=== PATIENT | female | born 1995 | race Caucasian/White ===

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

== ENCOUNTER 2018-03-28 18:49 | Emergency (ER) | payer OTHER ==
[~2018-03-28] VITALS: Ht 175.3 cm; Wt 143.0 kg
[~2018-03-28 18:49] MED LIST: CLARITIN10 M2 PO; MOTRIN400 MG PO
[2018-03-28] MEDS ORDERED: ALLEGRA60 MG PO (19:19)
[2018-03-28] MEDS ORDERED: AMOXICILLIN500 MG PO (20:24)
[2018-03-28 21:05] VITALS: BP 123/81
== END 2018-03-28 21:05 | disposition home or self-care (01) | DRG 605 ==
LOC: ED 18:49
PROC: 0HTQXZZ Resection of Finger Nail, External Approach (ICD-10-PCS; principal; 2018-03-28)
DX: S61.304A Unspecified open wound of right ring finger with damage to nail, initial encounter (principal); W23.1XXA Caught, crushed, jammed, or pinched between stationary objects, initial encounter; Y92.009 Unspecified place in unspecified non-institutional (private) residence as the place of occurrence of the external cause

== ENCOUNTER 2019-06-01 | Emergency (ER) | payer OTHER ==
[~2019-06-01] MED LIST changes: +ALLEGRA60 MG PO; +AMOXICILLIN500 MG PO
[2019-06-01 10:12] LABS: HEMATOCRIT 41.8 % (37.0-47.0); HEMOGLOBIN 13.7 g/dl (12.0-16.0); IMMATURE GRANULOCYTES 0.5 % (0.0-5.0); MEAN CORPUSCULAR HGB 27.8 pG CALC (26.0-32.0); MEAN CORPUSCULAR HGB CONC 32.8 g/dL CAL (32.0-36.0); NEUT# 8.85 thou/uL (2.00-7.15); RED BLOOD COUNT 4.92 mill/uL (4.20-5.60); RED CELL DISTRI WIDTH 13.1 % (11.5-15.5)
[2019-06-01] MEDS ORDERED: CLARITIN10 M1 PO (10:18)
[2019-06-01 10:28] LABS: ALBUMIN 4.4 g/dL (3.2-5.0); ANION GAP 12 (6-22 (CALC)); BILIRUBIN, TOTAL 0.4 mg/dL (0.0-1.4); BUN 8 mg/dL (7-17); BUN/CREATININE RATIO 11 (12-20 (CALC)); CARBON DIOXIDE 25 mmol/l (22-30); CHLORIDE 107 mmol/l (95-108); CREATININE 0.7 mg/dL (0.5-1.0); GFR > 60 ML/MIN (>=60 (CALC)); GFR FOR AFR.AMER. > 60 ML/MIN (>=60 (CALC)); POTASSIUM 3.7 mmol/l (3.5-5.1); SGOT/AST 23 u/l (14-36); SODIUM 140 mmol/l (137-146); TOTAL PROTEIN 7.8 g/dL (6.3-8.2)
[2019-06-01 10:30] LABS: ALKALINE PHOSPHATASE 96 u/l (38-126)
== END 2019-06-01 11:56 | disposition home or self-care (01) | DRG 761 ==
PROVIDERS: Family Medicine
DX: N92.0 Excessive and frequent menstruation with regular cycle (principal)

== ENCOUNTER 2021-05-28 11:59 | Observation (INO) | payer OTHER ==
[~2021-05-28] VITALS: Ht 175.3 cm; Wt 156.8 kg
[2021-05-28] VITALS (15 sets, daily range): BP systolic 99–151; BP diastolic 57–95
[~2021-05-28 11:59] MED LIST changes: +CLARITIN10 M1 PO
--- NOTE | 2021-05-28 12:04 | NUR ---
PT AMBULATORY TO ED ROOM 9 WITH STEADY GAIT FOR TRIAGE.
--- NOTE | 2021-05-28 12:22 | NUR ---
PT AMBULATORY TO ED BATHROOM TO ATTEMPT TO PROVIDE URINE SAMPLE.
--- NOTE | 2021-05-28 12:27 | NUR ---
URINE SAMPLE COLLECTED AND TAKEN TO LAB.
[2021-05-28 12:30] LABS: HEMATOCRIT 42.9 % (37.0-47.0); HEMOGLOBIN 14.1 g/dl (12.0-16.0); IMMATURE GRANULOCYTES 0.4 % (0.0-5.0); MEAN CELL VOLUME 86.5 fL CALC (80.0-100.0); MEAN CORPUSCULAR HGB 28.4 pG CALC (26.0-32.0); MEAN CORPUSCULAR HGB CONC 32.9 g/dL CAL (32.0-36.0); NEUT# 15.54 thou/uL (2.00-7.15); RED BLOOD COUNT 4.96 mill/uL (4.20-5.60); RED CELL DISTRI WIDTH 12.9 % (11.5-15.5)
[2021-05-28 12:36] LABS: URINE BILIRUBIN - DIPSTICK NEGATIVE (NEGATIVE); URINE BLOOD DIPSTICK LARGE (NEGATIVE); URINE COLOR YELLOW; URINE GLUCOSE - DIPSTICK NEGATIVE (NEGATIVE); URINE KETONE NEGATIVE (NEGATIVE); URINE PROTEIN - DIPSTICK 30 mg/dL (NEG-TRACE); URINE SPECIFIC GRAVITY 1.025; URINE UROBILINOGEN - DIPSTICK 0.2 E.U./dL (0.2)
[2021-05-28 12:44] LABS: URINE LEUK ESTERASE MODERATE (NEGATIVE); URINE NITRITE - DIPSTICK NEGATIVE (Negative)
[2021-05-28 12:46] LABS: URINE EPITHELIAL CELLS FEW EPI/hpf (0-FEW)
[2021-05-28 12:47] LABS: URINE BACTERIA FEW hpf
--- NOTE | 2021-05-28 12:49 | NUR ---
PT UPDATED ON POC AND ASKS FOR PAIN MEDICATION. DR HERNANDEZ NOTIFIED.
[2021-05-28 12:57] LABS: ALBUMIN 4.2 g/dL (3.2-5.0); ALKALINE PHOSPHATASE 96 u/l (38-126); ANION GAP 14 (6-22 (CALC)); BILIRUBIN, TOTAL 0.5 mg/dL (0.0-1.4); BUN 11 mg/dL (7-17); BUN/CREATININE RATIO 13 (12-20 (CALC)); CARBON DIOXIDE 23 mmol/l (22-30); CHLORIDE 106 mmol/l (95-108); CREATININE 0.9 mg/dL (0.5-1.0); GFR > 60 ML/MIN (>=60 (CALC)); GFR FOR AFR.AMER. > 60 ML/MIN (>=60 (CALC)); POTASSIUM 4.4 mmol/l (3.5-5.1); SGOT/AST 25 u/l (14-36); SODIUM 138 mmol/l (137-146); TOTAL PROTEIN 7.4 g/dL (6.3-8.2)
--- NOTE | 2021-05-28 13:29 | NUR ---
PT REPORTS FLANK PAIN RESOLVED. PT STABLE AWAITING IMAGING.
--- NOTE | 2021-05-28 14:02 | NUR ---
PT RESTING ON ED BED WITH SO AT THE BEDSIDE. PT DENIES ANY PAIN OR NAUSEA AT THIS TIME. VSS. SKIN PWD, BREATHING UNLABORED. PT ADVISED OF WAIT TIME. WILL CONTINUE TO MONITOR.
--- NOTE | 2021-05-28 15:02 | NUR ---
PT IN NO DISTRESS. VSS. WILL CONTINUE TO MONITOR.
--- NOTE | 2021-05-28 15:52 | NUR ---
PT PREPPED FOR SURGERY, JEWELRY REMOVED. SLIPPER SOCKS ON FEET. PERSONAL BELONGINGS BAGGED UP AND GIVEN TO SO. PT REPORTS PAIN RESOLVED AT THIS TIME. PT STABLE WITH FLUIDS INFUSING. PT REPORTS LAST SOLID FOOD AT 9PM YESERDAY AND GATORADE THIS MORNING AT 7AM.
--- NOTE | 2021-05-28 16:20 | NUR ---
RECREATION PROGRAM SPECIALIST IN TO SPEAK WITH PT
--- NOTE | 2021-05-28 16:59 | NUR ---
PT REMAINS STABLE, PAIN CONTROLLED, VSS. PT AWAITING SURGERY. SO AND FATHER AT THE BEDSIDE.
--- NOTE | 2021-05-28 17:06 | NUR ---
STACEY, SURGERY RN TAKES PT VIA STRETCHER TO SURGERY. PT'S BELONGINGS SENT WITH FAMILY. PT IN STABLE CONDITION AT THIS TIME.
--- NOTE | 2021-05-28 19:27 | NUR ---
PT ARRIVED TO MS2 VIA STRETCHER ACCOMPANIED BY OR NURSES X2, NO SIGNS OF DISTRESS NOTED, RESP EVEN AND UNLABORED ON RA. PT STOOD AND AMBULATED TO BED WITH STEADY GAIT. ORIENTED PT TO ROOM AND CALL LIGHT. SCD'S PLACED, DISCUSSED POC. IVF TO LAC. DENIES ANY PAIN AT THIS TIME, INSTRUCTED PT TO CALL FOR ASSISTANCE. ADMISSION ASSESSMENT COMPLETED, CALL LIGHT IN REACH,CONTINUE TO MONITOR.
--- NOTE | 2021-05-28 21:53 | NUR ---
PT RESTING IN BED, DISCUSSED IV ANTIBIOTIC, VERBALIZED UNDERSTANDING. ASSISTED PT TO BATHROOM VOIDED CLEAR BLOOD TINGED URINE, STRAINED. ASSISTED PT BACK TO BED, CALL LIGHT IN REACH,CONTINUE TO MONITOR.
[2021-05-29 00:16] VITALS: BP 117/70
--- NOTE | 2021-05-29 00:18 | NUR ---
PT RESTING IN BED WITH EYES CLOSED, EASILY AROUSED TO VERBAL STIMULI, PT VOICES NO NEEDS OR COMPLAINTS AT THIS TIME, CALL LIGHT IN REACH,CONTINUE TO MONITOR.
--- NOTE | 2021-05-29 04:31 | NUR ---
PT RESTING IN BED WITH EYES CLOSED, NO SIGNS OF DISTRESS NOTED, RESP EVEN AND UNLABORED. EASILY AROUSED TO VERBAL STIMULI, PT VOICES NO NEEDS OR COMPLAINTS AT THIS TIME. CALL LIGHT IN REACH,CONTINUE TO MONITOR.
[2021-05-29 05:06] LABS: MEAN CELL VOLUME 87.8 fL CALC (80.0-100.0); MEAN CORPUSCULAR HGB 28.5 pG CALC (26.0-32.0); MEAN CORPUSCULAR HGB CONC 32.5 g/dL CAL (32.0-36.0); RED BLOOD COUNT 4.17 mill/uL (4.20-5.60)
[2021-05-29 05:08] LABS: HEMATOCRIT 36.6 % (37.0-47.0); HEMOGLOBIN 11.9 g/dl (12.0-16.0)
[2021-05-29 05:14] LABS: ANION GAP 8 (6-22 (CALC)); BUN 11 mg/dL (7-17); BUN/CREATININE RATIO 14 (12-20 (CALC)); CARBON DIOXIDE 24 mmol/l (22-30); CHLORIDE 109 mmol/l (95-108); CREATININE 0.8 mg/dL (0.5-1.0); GFR > 60 ML/MIN (>=60 (CALC)); GFR FOR AFR.AMER. > 60 ML/MIN (>=60 (CALC)); POTASSIUM 3.8 mmol/l (3.5-5.1); SODIUM 137 mmol/l (137-146)
[2021-05-29 09:18] VITALS: BP 121/73
--- NOTE | 2021-05-29 09:49 | NUR ---
PT WITH FAMILY MEMBERS AT BEDSIDE. ASSESSMENT AND VITALS ALLOWED. PT ANXIOUS TO GO HOME. STATES NO PAIN AT THIS TIME. FALL/ SAFTEY PRECAUTION IN PLACE. CALL LIGHT WITHIN REACH
[2021-05-29] MEDS ORDERED: TAMSULOSIN HCL0.4 MG PO (11:18)
[2021-05-29] MEDS ORDERED: PYRIDIUM200 MG PO (11:19)
[2021-05-29] MEDS ORDERED: KEFLEX500 MG PO (11:19)
[2021-05-29] MEDS ORDERED: TRAMADOL HCL50 MG PO (11:20)
--- NOTE | 2021-05-29 12:13 | NUR ---
Discharge instructions given. Patient verbalizes understanding of same. Discharged in stable condition via Ambulatory to Home with family. All belongings sent with pt.
== END 2021-05-29 12:13 | disposition home or self-care (01) | DRG 661 ==
LOC: ED 11:59 → ED-I 15:14 → ED 15:29 → MS2 15:30
PROVIDERS: Family Medicine; ADMIT Internal Medicine; ATTEND Internal Medicine
PROC: 0T778DZ Dilation of Left Ureter with Intraluminal Device, Via Natural or Artificial Opening Endoscopic (ICD-10-PCS; principal; 2021-05-28)
PROC: BT141ZZ Fluoroscopy of Kidneys, Ureters and Bladder using Low Osmolar Contrast (ICD-10-PCS; 2021-05-28)
DX: N13.6 Pyonephrosis (principal); E66.9 Obesity, unspecified; Z84.1 Family history of disorders of kidney and ureter; Z20.822 Contact with and (suspected) exposure to COVID-19
CPT/HCPCS: J0131; Q9967

== ENCOUNTER 2021-06-18 06:13 | Day surgery (SDC) | payer OTHER ==
[~2021-06-18] VITALS: Ht 175.3 cm; Wt 154.7 kg
[~2021-06-18 06:13] MED LIST changes: +KEFLEX500 MG PO; +PYRIDIUM200 MG PO; +TAMSULOSIN HCL0.4 MG PO; +TRAMADOL HCL50 MG PO
[2021-06-18 08:54] VITALS: BP 118/73
== END 2021-06-18 09:07 | disposition home or self-care (01) | DRG 694 ==
LOC: ORM 06:13
PROVIDERS: ATTEND Urology
PROC: 0TP98DZ Removal of Intraluminal Device from Ureter, Via Natural or Artificial Opening Endoscopic (ICD-10-PCS; principal; 2021-06-18)
PROC: BT1F1ZZ Fluoroscopy of Left Kidney, Ureter and Bladder using Low Osmolar Contrast (ICD-10-PCS; 2021-06-18)
DX: N20.1 Calculus of ureter (principal); F17.290 Nicotine dependence, other tobacco product, uncomplicated
CPT/HCPCS: C1769; J0131; J1956; Q9967

== ENCOUNTER 2021-07-04 21:35 | Emergency (ER) | payer OTHER ==
[~2021-07-04] VITALS: Ht 175.3 cm; Wt 154.5 kg
[2021-07-04 21:50] VITALS: BP 146/81
[2021-07-04 22:00] VITALS: BP 139/82
[2021-07-04] MEDS ORDERED: PERCOCET 5/325M1 TAB PO (22:12)
[2021-07-04 22:18] LABS: HEMATOCRIT 38.6 % (37.0-47.0); HEMOGLOBIN 12.4 g/dl (12.0-16.0); IMMATURE GRANULOCYTES 0.4 % (0.0-5.0); MEAN CORPUSCULAR HGB 27.6 pG CALC (26.0-32.0); MEAN CORPUSCULAR HGB CONC 32.1 g/dL CAL (32.0-36.0); RED BLOOD COUNT 4.49 mill/uL (4.20-5.60); RED CELL DISTRI WIDTH 12.2 % (11.5-15.5)
[2021-07-04 22:20] LABS: URINE BILIRUBIN - DIPSTICK NEGATIVE (NEGATIVE); URINE BLOOD DIPSTICK NEGATIVE (NEGATIVE); URINE COLOR YELLOW; URINE GLUCOSE - DIPSTICK NEGATIVE (NEGATIVE); URINE KETONE TRACE mg/dL (NEGATIVE); URINE PH 6.5 (4.5-8.0); URINE PROTEIN - DIPSTICK NEGATIVE (NEG-TRACE); URINE UROBILINOGEN - DIPSTICK 0.2 E.U./dL (0.2)
[2021-07-04 22:21] LABS: URINE LEUK ESTERASE SMALL (NEGATIVE); URINE NITRITE - DIPSTICK NEGATIVE (Negative)
[2021-07-04 22:27] LABS: URINE BACTERIA MANY hpf; URINE RBC 0-2 RBC/hpf (0-5); URINE SQUAMOUS EPITHELIAL CELL MANY EPI/hpf (0-FEW)
[2021-07-04 22:30] VITALS: BP 145/86
[2021-07-04 22:35] LABS: ALBUMIN 3.9 g/dL (3.2-5.0); CREATININE 1.4 mg/dL (0.5-1.0); TOTAL PROTEIN 7.4 g/dL (6.3-8.2)
[2021-07-04 22:37] LABS: BILIRUBIN, TOTAL 0.2 mg/dL (0.0-1.4)
[2021-07-04 23:00] VITALS: BP 124/73
[2021-07-04 23:30] VITALS: BP 139/86
[2021-07-05] VITALS (9 sets, daily range): BP systolic 123–157; BP diastolic 79–106
[2021-07-05] MEDS ORDERED: KEFLEX500 MG PO (02:01)
[2021-07-05] MEDS ORDERED: TAMSULOSIN0.4 MG PO (02:04)
[2021-07-05] MEDS ORDERED: LORTAB 1010 MG PO (02:04)
== END 2021-07-05 02:20 | disposition home or self-care (01) | DRG 690 ==
LOC: ED 21:35
PROVIDERS: Emergency Medicine
DX: N13.6 Pyonephrosis (principal); F17.200 Nicotine dependence, unspecified, uncomplicated; Z87.442 Personal history of urinary calculi